=== PATIENT | female | born 1930 | race Caucasian/White ===

== ENCOUNTER 2018-09-19 06:14 | Inpatient (IN) | payer OTHER, MEDICARE ==
[2018-09-19] MEDS ORDERED: ACETAMINOPHEN 325 MG TAB PO (08:00)
[2018-09-19] MEDS ORDERED: BISACODYL (EC) 5 MG TAB PO (08:00)
[2018-09-19] MEDS: SOD CHLORIDE 0.45% 1,000 ML IV (08:22)
[2018-09-19] MEDS: CEFTRIAXONE 1 GM/NS 50 ML IVPB (08:30)
[2018-09-19 08:58] LABS: ADD MAN DIFF? NO
[2018-09-19] MEDS: AMLODIPINE 10 MG TAB PO (08:59)
[2018-09-19] MEDS ORDERED: CEFTRIAXONE 1 GM INJ IVPB (09:00)
[2018-09-19] MEDS: PANTOPRAZOLE (EC) 40 MG TAB PO (09:00)
[2018-09-19] MEDS: LOSARTAN 50 MG TAB PO ×3 (09:00→20:32)
[2018-09-19 09:14] LABS: WHITE BLOOD COUNT 11.5 10^3/ul (4.8-10.8)
[2018-09-19 09:14] LABS: BASOPHILS % 0.2 % (0.0-2.0); EOSINOPHILS % 0.1 % (0.0-7.0); HEMATOCRIT 25.1 % (37.0-47.0); HEMOGLOBIN 7.8 g/dl (12.0-16.0); LYMPHOCYTES # 0.8 10^3/ul (0.8-2.9); LYMPHOCYTES % 6.9 % (15.0-51.0); MEAN CORPUSCULAR HEMOGLOBIN 24.5 pg (29.0-33.0); MEAN CORPUSCULAR HGB CONC 31.1 g/dl (32.0-37.0); MEAN CORPUSCULAR VOLUME 78.7 fl (82.0-101.0); MEAN PLATELET VOLUME 9.1 fl (7.4-10.4); MONOCYTE # 0.7 10^3/ul (0.3-0.9); MONOCYTES % 6.1 % (0.0-11.0); NEUTROPHILS % 86.2 % (39.0-77.0); PLATELET COUNT 523 10^3/UL (140-415); RED BLOOD COUNT 3.19 10^6/ul (4.20-5.40); RED CELL DISTRIBUTION WIDTH 15.2 % (11.5-14.5)
[2018-09-19 09:22] LABS: ALANINE AMINOTRANSFERASE 18 IU/L (13-69); ALBUMIN 2.9 g/dl (3.3-4.9); ALBUMIN/GLOBULIN RATIO 0.74; ALKALINE PHOSPHATASE 89 IU/L (42-121); ANION GAP 9 (5-13); ASPARTATE AMINO TRANSFERASE 22 IU/L (15-46); BILIRUBIN,INDIRECT 0.2 mg/dl (0-1.1); BILIRUBIN,TOTAL 0.2 mg/dl (0.2-1.3); BLOOD UREA NITROGEN 14 mg/dl (7-20); CALCIUM 8.7 mg/dl (8.4-10.2); CARBON DIOXIDE 25 mmol/L (21-31); CHLORIDE 103 mmol/L (97-110); CREATININE 0.54 mg/dl (0.44-1.00); GLUCOSE 157 mg/dl (70-220); SODIUM 137 mmol/L (135-144); TOTAL PROTEIN 6.8 g/dl (6.1-8.1)
[2018-09-19 09:25] LABS: HEMOGLOBIN A1C 6.9 % (0-5.9)
[2018-09-19 09:30] LABS: POTASSIUM 2.9 mmol/L (3.5-5.1)
[2018-09-19] MEDS: POTASSIUM CHLORIDE 100 ML IVPB ×2 (10:53→16:47)
[2018-09-19] MEDS: 1/2 NS + KCL 20 MEQ 1,000 ML IV (18:24)
[2018-09-19 19:03] LABS: TROPONIN-I 0.329 ng/ml (0.000-0.120)
[2018-09-19] MEDS: METOPROLOL 25 MG TAB PO ×2 (20:28→20:32)
[2018-09-20] MEDS: PANTOPRAZOLE (EC) 40 MG TAB PO (05:36)
[2018-09-20 05:58] LABS: ADD MAN DIFF? NO
[2018-09-20 06:03] LABS: WHITE BLOOD COUNT 11.5 10^3/ul (4.8-10.8)
[2018-09-20 06:03] LABS: BASOPHILS % 0.2 % (0.0-2.0); EOSINOPHILS % 0.2 % (0.0-7.0); HEMATOCRIT 25.5 % (37.0-47.0); HEMOGLOBIN 7.9 g/dl (12.0-16.0); LYMPHOCYTES # 1.3 10^3/ul (0.8-2.9); MEAN CORPUSCULAR HEMOGLOBIN 24.5 pg (29.0-33.0); MEAN CORPUSCULAR VOLUME 78.9 fl (82.0-101.0); MEAN PLATELET VOLUME 9.2 fl (7.4-10.4); MONOCYTE # 0.8 10^3/ul (0.3-0.9); MONOCYTES % 7.1 % (0.0-11.0); NEUTROPHIL # 9.3 10^3/ul (1.6-7.5); NEUTROPHILS % 81.1 % (39.0-77.0); PLATELET COUNT 534 10^3/UL (140-415); RED BLOOD COUNT 3.23 10^6/ul (4.20-5.40); RED CELL DISTRIBUTION WIDTH 15.3 % (11.5-14.5)
[2018-09-20 06:24] LABS: LACTIC ACID 1.1 mmol/L (0.5-2.0)
[2018-09-20 06:28] LABS: IRON 22 ug/dl (35-150)
[2018-09-20 06:37] LABS: % IRON SATURATION 9 % SAT (22-52); TOTAL IRON BINDING CAPACITY 244 ug/dl (241-421)
[2018-09-20 06:55] LABS: ANION GAP 10 (5-13); BLOOD UREA NITROGEN 11 mg/dl (7-20); CARBON DIOXIDE 25 mmol/L (21-31); CHLORIDE 103 mmol/L (97-110); CHOL/HDL RATIO 5.1 RATIO; CREATININE 0.54 mg/dl (0.44-1.00); GLUCOSE 132 mg/dl (70-220); HDL CHOLESTEROL 26 mg/dl (33-92); LDL CHOLESTEROL,CALCULATED 88 mg/dl; SODIUM 138 mmol/L (135-144); TRIGLYCERIDES 105 mg/dl (0-149)
[2018-09-20 06:55] LABS: CHOLESTEROL 135 mg/dl (100-200)
[2018-09-20 07:00] LABS: TROPONIN-I 0.343 ng/ml (0.000-0.120)
[2018-09-20] MEDS: LOSARTAN 50 MG TAB PO ×2 (08:41→20:11)
[2018-09-20] MEDS: METOPROLOL 25 MG TAB PO (08:41)
[2018-09-20] MEDS: CEFTRIAXONE 1 GM/NS 50 ML IVPB (08:42)
[2018-09-20] MEDS: AMLODIPINE 10 MG TAB PO (08:42)
[2018-09-20] MEDS: ASPIRIN 81 MG TAB PO (08:42)
[2018-09-20] MEDS: 1/2 NS + KCL 20 MEQ 1,000 ML IV (11:30)
[2018-09-20] MEDS: LEVOTHYROXINE 75 MCG TAB PO (12:16)
[2018-09-20] MEDS ORDERED: GLUCOSE GEL 15 GRAM TUBE BUCCAL (12:30)
[2018-09-20] MEDS ORDERED: GLUCAGON 1 MG INJ IM (12:30)
[2018-09-20] MEDS ORDERED: DEXTROSE 50% 50 ML SYRINGE IV ×2 (12:30)
[2018-09-20] MEDS ORDERED: GLUCOSE GEL 15 GRAM TUBE PO ×2 (12:30)
[2018-09-20] MEDS ORDERED: METOPROLOL 5 MG INJ IV (15:30)
[2018-09-20] MEDS: SOD FERRIC GLUC COMPLX 125 MG in SOD CHLORIDE 0.9% 100 ML IVPB (16:43)
[2018-09-20] MEDS: DIGOXIN 500 MCG INJ IV (16:46)
[2018-09-20] MEDS: INSULIN ASPART [NOVOLOG] 3 ML PEN SC ×2 (17:01→21:53)
[2018-09-20] MEDS: METOPROLOL 50 MG TAB PO (20:11)
[2018-09-20] MEDS: CEFEPIME 1GM/50 ML (PMX) 50 ML IVPB (20:12)
[2018-09-21 05:31] LABS: ADD MAN DIFF? NO
[2018-09-21 05:34] LABS: WHITE BLOOD COUNT 10.5 10^3/ul (4.8-10.8)
[2018-09-21 05:34] LABS: BASOPHILS % 0.3 % (0.0-2.0); EOSINOPHILS # 0.1 10^3/ul (0.0-0.5); EOSINOPHILS % 0.6 % (0.0-7.0); HEMOGLOBIN 8.1 g/dl (12.0-16.0); LYMPHOCYTES # 1.3 10^3/ul (0.8-2.9); LYMPHOCYTES % 12.4 % (15.0-51.0); MEAN CORPUSCULAR HEMOGLOBIN 24.5 pg (29.0-33.0); MEAN CORPUSCULAR HGB CONC 31.2 g/dl (32.0-37.0); MEAN CORPUSCULAR VOLUME 78.5 fl (82.0-101.0); MEAN PLATELET VOLUME 9.4 fl (7.4-10.4); MONOCYTE # 0.8 10^3/ul (0.3-0.9); MONOCYTES % 7.9 % (0.0-11.0); NEUTROPHIL # 8.2 10^3/ul (1.6-7.5); PLATELET COUNT 575 10^3/UL (140-415); RED BLOOD COUNT 3.31 10^6/ul (4.20-5.40); RED CELL DISTRIBUTION WIDTH 15.5 % (11.5-14.5)
[2018-09-21] MEDS: LEVOTHYROXINE 75 MCG TAB PO (06:00)
[2018-09-21] MEDS: PANTOPRAZOLE (EC) 40 MG TAB PO (06:00)
[2018-09-21 06:19] LABS: ANION GAP 9 (5-13); BLOOD UREA NITROGEN 13 mg/dl (7-20); CALCIUM 9.1 mg/dl (8.4-10.2); CARBON DIOXIDE 22 mmol/L (21-31); CHLORIDE 104 mmol/L (97-110); CREATININE 0.68 mg/dl (0.44-1.00); GLUCOSE 128 mg/dl (70-220); POTASSIUM 3.8 mmol/L (3.5-5.1); SODIUM 135 mmol/L (135-144)
[2018-09-21 06:29] LABS: TROPONIN-I 0.236 ng/ml (0.000-0.120)
[2018-09-21] MEDS: INSULIN ASPART [NOVOLOG] 3 ML PEN SC ×4 (07:48→20:31)
[2018-09-21] MEDS: ASPIRIN 81 MG TAB PO (08:29)
[2018-09-21] MEDS: LOSARTAN 50 MG TAB PO ×2 (08:30→20:17)
[2018-09-21] MEDS: METOPROLOL 50 MG TAB PO ×2 (08:30→20:17)
[2018-09-21] MEDS: AMLODIPINE 10 MG TAB PO (08:30)
[2018-09-21] MEDS: 1/2 NS + KCL 20 MEQ 1,000 ML IV (08:31)
[2018-09-21] MEDS: CEFEPIME 1GM/50 ML (PMX) 50 ML IVPB ×2 (08:31→20:17)
[2018-09-21] MEDS: SOD FERRIC GLUC COMPLX 125 MG in SOD CHLORIDE 0.9% 100 ML IVPB (13:12)
[2018-09-21] MEDS ORDERED: VANCOMYCIN IV PER PHARMACY XX (16:00)
[2018-09-21] MEDS: VANCOMYCIN 750 MG (PMX) 250 ML IVPB (17:25)
[2018-09-21] MEDS: MUPIROCIN 2% 22 GM OINT TOP (20:20)
[2018-09-22] MEDS: 1/2 NS + KCL 20 MEQ 1,000 ML IV ×2 (03:30→12:24)
[2018-09-22] MEDS: PANTOPRAZOLE (EC) 40 MG TAB PO (05:28)
[2018-09-22] MEDS: LEVOTHYROXINE 75 MCG TAB PO (05:28)
[2018-09-22 05:52] LABS: ADD MAN DIFF? NO
[2018-09-22 05:59] LABS: WHITE BLOOD COUNT 9.5 10^3/ul (4.8-10.8)
[2018-09-22 05:59] LABS: BASOPHILS % 0.3 % (0.0-2.0); EOSINOPHILS # 0.1 10^3/ul (0.0-0.5); EOSINOPHILS % 0.8 % (0.0-7.0); HEMATOCRIT 27.1 % (37.0-47.0); HEMOGLOBIN 8.3 g/dl (12.0-16.0); LYMPHOCYTES # 1.4 10^3/ul (0.8-2.9); LYMPHOCYTES % 14.2 % (15.0-51.0); MEAN CORPUSCULAR HEMOGLOBIN 24.3 pg (29.0-33.0); MEAN CORPUSCULAR HGB CONC 30.6 g/dl (32.0-37.0); MEAN CORPUSCULAR VOLUME 79.5 fl (82.0-101.0); MEAN PLATELET VOLUME 9.5 fl (7.4-10.4); MONOCYTE # 0.8 10^3/ul (0.3-0.9); MONOCYTES % 8.1 % (0.0-11.0); NEUTROPHIL # 7.2 10^3/ul (1.6-7.5); NEUTROPHILS % 75.4 % (39.0-77.0); PLATELET COUNT 572 10^3/UL (140-415); RED BLOOD COUNT 3.41 10^6/ul (4.20-5.40); RED CELL DISTRIBUTION WIDTH 15.8 % (11.5-14.5)
[2018-09-22 06:32] LABS: MAGNESIUM 1.5 mg/dl (1.7-2.5)
[2018-09-22 06:32] LABS: PHOSPHORUS 3.9 mg/dl (2.5-4.9)
[2018-09-22 06:34] LABS: ANION GAP 9 (5-13); BLOOD UREA NITROGEN 13 mg/dl (7-20); CALCIUM 9.1 mg/dl (8.4-10.2); CARBON DIOXIDE 21 mmol/L (21-31); CHLORIDE 106 mmol/L (97-110); CREATININE 0.66 mg/dl (0.44-1.00); GLUCOSE 108 mg/dl (70-220); POTASSIUM 3.8 mmol/L (3.5-5.1); SODIUM 136 mmol/L (135-144)
[2018-09-22 06:45] LABS: TROPONIN-I 0.172 ng/ml (0.000-0.120)
[2018-09-22] MEDS: INSULIN ASPART [NOVOLOG] 3 ML PEN SC ×4 (08:00→21:09)
[2018-09-22] MEDS: CEFEPIME 1GM/50 ML (PMX) 50 ML IVPB ×2 (08:26→20:49)
[2018-09-22] MEDS: ASPIRIN 81 MG TAB PO (08:27)
[2018-09-22] MEDS: METOPROLOL 50 MG TAB PO ×2 (08:27→20:49)
[2018-09-22] MEDS: AMLODIPINE 10 MG TAB PO (08:28)
[2018-09-22] MEDS: LOSARTAN 50 MG TAB PO ×2 (08:28→20:47)
[2018-09-22] MEDS: MUPIROCIN 2% 22 GM OINT TOP ×2 (08:28→20:55)
[2018-09-22] MEDS: SOD FERRIC GLUC COMPLX 125 MG in SOD CHLORIDE 0.9% 100 ML IVPB (12:23)
[2018-09-22] MEDS: VANCOMYCIN 500 MG (PMX) 100 ML IVPB (16:22)
[2018-09-22] MEDS: MAGNESIUM SULFATE 3 GM in DEXTROSE 5% 100 ML IVPB (17:28)
[2018-09-23] MEDS: PANTOPRAZOLE (EC) 40 MG TAB PO (05:21)
[2018-09-23] MEDS: LEVOTHYROXINE 75 MCG TAB PO (05:21)
[2018-09-23 05:48] LABS: ADD MAN DIFF? NO
[2018-09-23 05:56] LABS: WHITE BLOOD COUNT 10.8 10^3/ul (4.8-10.8)
[2018-09-23 05:56] LABS: BASOPHIL # 0.1 10^3/ul (0.0-0.1); BASOPHILS % 0.5 % (0.0-2.0); EOSINOPHILS # 0.1 10^3/ul (0.0-0.5); EOSINOPHILS % 1.2 % (0.0-7.0); HEMATOCRIT 26.4 % (37.0-47.0); HEMOGLOBIN 8.1 g/dl (12.0-16.0); LYMPHOCYTES # 1.4 10^3/ul (0.8-2.9); LYMPHOCYTES % 12.7 % (15.0-51.0); MEAN CORPUSCULAR HEMOGLOBIN 24.7 pg (29.0-33.0); MEAN CORPUSCULAR HGB CONC 30.7 g/dl (32.0-37.0); MEAN CORPUSCULAR VOLUME 80.5 fl (82.0-101.0); MEAN PLATELET VOLUME 9.7 fl (7.4-10.4); MONOCYTE # 0.9 10^3/ul (0.3-0.9); MONOCYTES % 8.1 % (0.0-11.0); NEUTROPHIL # 8.2 10^3/ul (1.6-7.5); NEUTROPHILS % 75.9 % (39.0-77.0); PLATELET COUNT 578 10^3/UL (140-415); RED BLOOD COUNT 3.28 10^6/ul (4.20-5.40); RED CELL DISTRIBUTION WIDTH 15.9 % (11.5-14.5)
[2018-09-23 06:08] LABS: MAGNESIUM 2.3 mg/dl (1.7-2.5)
[2018-09-23 06:08] LABS: PHOSPHORUS 3.7 mg/dl (2.5-4.9)
[2018-09-23 06:11] LABS: ANION GAP 8 (5-13); BLOOD UREA NITROGEN 14 mg/dl (7-20); CARBON DIOXIDE 22 mmol/L (21-31); CHLORIDE 105 mmol/L (97-110); CREATININE 0.69 mg/dl (0.44-1.00); GLUCOSE 123 mg/dl (70-220); POTASSIUM 3.7 mmol/L (3.5-5.1); SODIUM 135 mmol/L (135-144)
[2018-09-23] MEDS: INSULIN ASPART [NOVOLOG] 3 ML PEN SC ×4 (07:49→21:08)
[2018-09-23] MEDS: CEFEPIME 1GM/50 ML (PMX) 50 ML IVPB (08:21)
[2018-09-23] MEDS: ASPIRIN 81 MG TAB PO (08:21)
[2018-09-23] MEDS: METOPROLOL 50 MG TAB PO ×2 (08:22→21:04)
[2018-09-23] MEDS: LOSARTAN 50 MG TAB PO ×2 (08:23→21:05)
[2018-09-23] MEDS: AMLODIPINE 10 MG TAB PO (08:23)
[2018-09-23] MEDS: MUPIROCIN 2% 22 GM OINT TOP ×2 (08:24→21:09)
[2018-09-23] MEDS: SOD FERRIC GLUC COMPLX 125 MG in SOD CHLORIDE 0.9% 100 ML IVPB (12:40)
[2018-09-23] MEDS: VANCOMYCIN 500 MG (PMX) 100 ML IVPB (17:17)
[2018-09-24] MEDS: LEVOTHYROXINE 75 MCG TAB PO (06:58)
[2018-09-24] MEDS: PANTOPRAZOLE (EC) 40 MG TAB PO (06:58)
[2018-09-24] MEDS: INSULIN ASPART [NOVOLOG] 3 ML PEN SC ×3 (07:55→17:36)
[2018-09-24] MEDS: ASPIRIN 81 MG TAB PO (08:52)
[2018-09-24] MEDS: LOSARTAN 50 MG TAB PO (08:53)
[2018-09-24] MEDS: METOPROLOL 50 MG TAB PO ×2 (08:53→21:00)
[2018-09-24] MEDS: AMLODIPINE 10 MG TAB PO (08:53)
[2018-09-24] MEDS: MUPIROCIN 2% 22 GM OINT TOP ×2 (08:54→21:00)
[2018-09-24] MEDS: SOD FERRIC GLUC COMPLX 125 MG in SOD CHLORIDE 0.9% 100 ML IVPB (12:33)
[2018-09-24] MEDS ORDERED: CEFTRIAXONE 2 GM/50 ML (PMX) 50 ML IVPB (16:30)
[2018-09-24] MEDS: CEFTRIAXONE 1 GM/NS 50 ML IVPB (16:54)
[2018-09-25] MEDS: ATORVASTATIN 10 MG TAB PO ×2 (00:31→21:15)
[2018-09-25] MEDS: LOSARTAN 50 MG TAB PO ×3 (00:32→21:16)
[2018-09-25] MEDS: INSULIN ASPART [NOVOLOG] 3 ML PEN SC ×5 (00:34→21:24)
[2018-09-25 05:09] LABS: ADD MAN DIFF? NO
[2018-09-25 05:17] LABS: BASOPHILS % 0.3 % (0.0-2.0); EOSINOPHILS # 0.1 10^3/ul (0.0-0.5); EOSINOPHILS % 1.1 % (0.0-7.0); HEMOGLOBIN 8.6 g/dl (12.0-16.0); LYMPHOCYTES # 1.5 10^3/ul (0.8-2.9); LYMPHOCYTES % 12.7 % (15.0-51.0); MEAN CORPUSCULAR HEMOGLOBIN 25.1 pg (29.0-33.0); MEAN CORPUSCULAR HGB CONC 30.7 g/dl (32.0-37.0); MEAN CORPUSCULAR VOLUME 81.9 fl (82.0-101.0); MEAN PLATELET VOLUME 9.5 fl (7.4-10.4); MONOCYTE # 0.9 10^3/ul (0.3-0.9); MONOCYTES % 7.8 % (0.0-11.0); NEUTROPHIL # 8.9 10^3/ul (1.6-7.5); NEUTROPHILS % 76.7 % (39.0-77.0); PLATELET COUNT 528 10^3/UL (140-415); RED BLOOD COUNT 3.42 10^6/ul (4.20-5.40); RED CELL DISTRIBUTION WIDTH 17.9 % (11.5-14.5)
[2018-09-25 05:17] LABS: WHITE BLOOD COUNT 11.6 10^3/ul (4.8-10.8)
[2018-09-25 05:41] LABS: PHOSPHORUS 3.4 mg/dl (2.5-4.9)
[2018-09-25 05:41] LABS: ANION GAP 8 (5-13); BLOOD UREA NITROGEN 15 mg/dl (7-20); CALCIUM 9.2 mg/dl (8.4-10.2); CARBON DIOXIDE 24 mmol/L (21-31); CHLORIDE 107 mmol/L (97-110); CREATININE 0.63 mg/dl (0.44-1.00); GLUCOSE 117 mg/dl (70-220); MAGNESIUM 1.9 mg/dl (1.7-2.5); POTASSIUM 3.9 mmol/L (3.5-5.1); SODIUM 139 mmol/L (135-144)
[2018-09-25] MEDS: LEVOTHYROXINE 75 MCG TAB PO (06:29)
[2018-09-25] MEDS: PANTOPRAZOLE (EC) 40 MG TAB PO (06:29)
[2018-09-25] MEDS: AMLODIPINE 10 MG TAB PO (08:40)
[2018-09-25] MEDS: ASPIRIN 81 MG TAB PO (08:40)
[2018-09-25] MEDS: METOPROLOL 50 MG TAB PO ×2 (08:40→21:15)
[2018-09-25] MEDS: MUPIROCIN 2% 22 GM OINT TOP ×2 (08:50→21:17)
[2018-09-25] MEDS: CEFTRIAXONE 1 GM/NS 50 ML IVPB (15:21)
[2018-09-26] MEDS: PANTOPRAZOLE (EC) 40 MG TAB PO (05:40)
[2018-09-26] MEDS: LEVOTHYROXINE 75 MCG TAB PO (05:41)
[2018-09-26] MEDS: INSULIN ASPART [NOVOLOG] 3 ML PEN SC ×4 (08:50→21:00)
[2018-09-26] MEDS: AMLODIPINE 10 MG TAB PO (09:44)
[2018-09-26] MEDS: MUPIROCIN 2% 22 GM OINT TOP ×2 (09:44→21:18)
[2018-09-26] MEDS: METOPROLOL 50 MG TAB PO ×2 (09:44→21:17)
[2018-09-26] MEDS: LOSARTAN 50 MG TAB PO ×2 (09:44→21:17)
[2018-09-26] MEDS: ASPIRIN 81 MG TAB PO (09:44)
[2018-09-26] MEDS: CEFTRIAXONE 1 GM/NS 50 ML IVPB (17:55)
[2018-09-26] MEDS: ATORVASTATIN 10 MG TAB PO (21:16)
[2018-09-27] MEDS: PANTOPRAZOLE (EC) 40 MG TAB PO (05:43)
[2018-09-27] MEDS: LEVOTHYROXINE 75 MCG TAB PO (05:43)
[2018-09-27 05:56] LABS: ADD MAN DIFF? NO
[2018-09-27 06:03] LABS: BASOPHIL # 0.1 10^3/ul (0.0-0.1); BASOPHILS % 0.6 % (0.0-2.0); EOSINOPHILS # 0.2 10^3/ul (0.0-0.5); EOSINOPHILS % 1.8 % (0.0-7.0); HEMATOCRIT 27.3 % (37.0-47.0); HEMOGLOBIN 8.4 g/dl (12.0-16.0); LYMPHOCYTES # 1.8 10^3/ul (0.8-2.9); LYMPHOCYTES % 15.2 % (15.0-51.0); MEAN CORPUSCULAR HEMOGLOBIN 25.4 pg (29.0-33.0); MEAN CORPUSCULAR HGB CONC 30.8 g/dl (32.0-37.0); MEAN CORPUSCULAR VOLUME 82.5 fl (82.0-101.0); MEAN PLATELET VOLUME 10.1 fl (7.4-10.4); MONOCYTE # 0.8 10^3/ul (0.3-0.9); MONOCYTES % 6.8 % (0.0-11.0); NEUTROPHIL # 8.8 10^3/ul (1.6-7.5); NEUTROPHILS % 73.7 % (39.0-77.0); PLATELET COUNT 583 10^3/UL (140-415); RED BLOOD COUNT 3.31 10^6/ul (4.20-5.40); RED CELL DISTRIBUTION WIDTH 18.9 % (11.5-14.5)
[2018-09-27 06:36] LABS: ANION GAP 9 (5-13); BLOOD UREA NITROGEN 14 mg/dl (7-20); CALCIUM 9.4 mg/dl (8.4-10.2); CARBON DIOXIDE 26 mmol/L (21-31); CHLORIDE 102 mmol/L (97-110); GLUCOSE 118 mg/dl (70-220); SODIUM 137 mmol/L (135-144)
[2018-09-27 06:39] LABS: POTASSIUM 3.8 mmol/L (3.5-5.1)
[2018-09-27] MEDS: INSULIN ASPART [NOVOLOG] 3 ML PEN SC ×4 (08:00→21:48)
[2018-09-27] MEDS: LOSARTAN 50 MG TAB PO ×2 (09:32→21:37)
[2018-09-27] MEDS: METOPROLOL 50 MG TAB PO ×2 (09:32→21:36)
[2018-09-27] MEDS: ASPIRIN 81 MG TAB PO (09:32)
[2018-09-27] MEDS: AMLODIPINE 10 MG TAB PO (09:32)
[2018-09-27] MEDS: MUPIROCIN 2% 22 GM OINT TOP ×2 (09:33→21:38)
[2018-09-27] MEDS: LOSARTAN 25 MG TAB PO ×2 (11:30→21:00)
[2018-09-27] MEDS: CEFTRIAXONE 1 GM/NS 50 ML IVPB (16:21)
[2018-09-27] MEDS: ATORVASTATIN 10 MG TAB PO (21:36)
[2018-09-27] MEDS: DOXYCYCLINE 100 MG TAB PO (21:36)
[2018-09-28] MEDS: PANTOPRAZOLE (EC) 40 MG TAB PO (05:39)
[2018-09-28] MEDS: LEVOTHYROXINE 75 MCG TAB PO (05:39)
[2018-09-28 06:11] LABS: ADD MAN DIFF? NO
[2018-09-28 06:26] LABS: WHITE BLOOD COUNT 12.8 10^3/ul (4.8-10.8)
[2018-09-28 06:26] LABS: BASOPHIL # 0.1 10^3/ul (0.0-0.1); BASOPHILS % 0.4 % (0.0-2.0); EOSINOPHILS # 0.1 10^3/ul (0.0-0.5); EOSINOPHILS % 0.9 % (0.0-7.0); HEMATOCRIT 32.6 % (37.0-47.0); HEMOGLOBIN 10.2 g/dl (12.0-16.0); LYMPHOCYTES # 2.1 10^3/ul (0.8-2.9); LYMPHOCYTES % 16.1 % (15.0-51.0); MEAN CORPUSCULAR HEMOGLOBIN 25.6 pg (29.0-33.0); MEAN CORPUSCULAR HGB CONC 31.3 g/dl (32.0-37.0); MEAN CORPUSCULAR VOLUME 81.9 fl (82.0-101.0); MEAN PLATELET VOLUME 11.2 fl (7.4-10.4); MONOCYTE # 0.8 10^3/ul (0.3-0.9); MONOCYTES % 6.1 % (0.0-11.0); NEUTROPHIL # 9.6 10^3/ul (1.6-7.5); NEUTROPHILS % 74.9 % (39.0-77.0); PLATELET COUNT 460 10^3/UL (140-415); RED BLOOD COUNT 3.98 10^6/ul (4.20-5.40)
[2018-09-28 06:38] LABS: ANION GAP 10 (5-13); BLOOD UREA NITROGEN 20 mg/dl (7-20); CALCIUM 9.4 mg/dl (8.4-10.2); CARBON DIOXIDE 24 mmol/L (21-31); CHLORIDE 100 mmol/L (97-110); CREATININE 0.78 mg/dl (0.44-1.00); GLUCOSE 140 mg/dl (70-220); POTASSIUM 4.3 mmol/L (3.5-5.1); SODIUM 134 mmol/L (135-144)
[2018-09-28] MEDS: INSULIN ASPART [NOVOLOG] 3 ML PEN SC ×4 (08:22→21:32)
[2018-09-28] MEDS: DOXYCYCLINE 100 MG TAB PO ×2 (09:00→21:29)
[2018-09-28] MEDS: METOPROLOL 50 MG TAB PO ×2 (09:01→21:30)
[2018-09-28] MEDS: AMLODIPINE 10 MG TAB PO (09:01)
[2018-09-28] MEDS: ASPIRIN 81 MG TAB PO (09:02)
[2018-09-28] MEDS: LOSARTAN 25 MG TAB PO (09:02)
[2018-09-28] MEDS: MUPIROCIN 2% 22 GM OINT TOP ×2 (09:03→21:33)
[2018-09-28] MEDS: LOSARTAN 50 MG TAB PO ×2 (09:03→21:29)
[2018-09-28] MEDS ORDERED: LIDOCAINE 1% (MPF) 5 ML VIAL SC (13:30)
[2018-09-28 15:56] LABS: ADD UMIC YES; UR ASCORBIC ACID NEGATIVE (NEGATIVE); UR BACTERIA FEW /HPF (NONE SEEN); UR BILIRUBIN (Dip) NEGATIVE (NEGATIVE); UR BLOOD (Dip) 1+ mg/dL (NEGATIVE); UR CLARITY CLOUDY (CLEAR); UR COLOR YELLOW (YELLOW); UR GLUCOSE (Dip) NEGATIVE (NEGATIVE); UR KETONES (Dip) NEGATIVE (NEGATIVE); UR LEUKOCYTE ESTERASE (Dip) NEGATIVE Leu/ul (NEGATIVE); UR NITRITE (Dip) NEGATIVE (NEGATIVE); UR RBC 23 /HPF (0-5); UR SPECIFIC GRAVITY (Dip) 1.012 (1.003-1.030); UR SQUAMOUS EPITHELIAL CELL MODERATE /HPF (FEW); UR TOTAL PROTEIN (Dip) NEGATIVE (NEGATIVE); UR UROBILINOGEN (Dip) NEGATIVE (NEGATIVE); UR WBC 2 /HPF (0-5)
[2018-09-28] MEDS: CEFTRIAXONE 1 GM/NS 50 ML IVPB (18:23)
[2018-09-28] MEDS: ATORVASTATIN 10 MG TAB PO (21:29)
[2018-09-29 05:30] LABS: ADD MAN DIFF? NO
[2018-09-29 05:40] LABS: WHITE BLOOD COUNT 10.8 10^3/ul (4.8-10.8)
[2018-09-29 05:40] LABS: BASOPHIL # 0.1 10^3/ul (0.0-0.1); BASOPHILS % 0.6 % (0.0-2.0); EOSINOPHILS # 0.1 10^3/ul (0.0-0.5); EOSINOPHILS % 0.8 % (0.0-7.0); HEMATOCRIT 29.6 % (37.0-47.0); HEMOGLOBIN 9.3 g/dl (12.0-16.0); LYMPHOCYTES % 18.1 % (15.0-51.0); MEAN CORPUSCULAR HEMOGLOBIN 25.8 pg (29.0-33.0); MEAN CORPUSCULAR HGB CONC 31.4 g/dl (32.0-37.0); MEAN CORPUSCULAR VOLUME 82.2 fl (82.0-101.0); MEAN PLATELET VOLUME 10.1 fl (7.4-10.4); MONOCYTE # 0.6 10^3/ul (0.3-0.9); MONOCYTES % 5.4 % (0.0-11.0); NEUTROPHILS % 74.1 % (39.0-77.0); PLATELET COUNT 466 10^3/UL (140-415); RED CELL DISTRIBUTION WIDTH 20.1 % (11.5-14.5)
[2018-09-29] MEDS: PANTOPRAZOLE (EC) 40 MG TAB PO (06:09)
[2018-09-29] MEDS: LEVOTHYROXINE 75 MCG TAB PO (06:09)
[2018-09-29] MEDS: INSULIN ASPART [NOVOLOG] 3 ML PEN SC ×2 (07:51→11:40)
[2018-09-29] MEDS: DOXYCYCLINE 100 MG TAB PO (08:24)
[2018-09-29] MEDS: ASPIRIN 81 MG TAB PO (08:24)
[2018-09-29] MEDS: METOPROLOL 50 MG TAB PO (08:25)
[2018-09-29] MEDS: AMLODIPINE 10 MG TAB PO (08:25)
[2018-09-29] MEDS: LOSARTAN 50 MG TAB PO (08:25)
[2018-09-29] MEDS: MUPIROCIN 2% 22 GM OINT TOP (08:26)
[2018-09-29] MEDS: MEGESTROL (40 MG/ML) 10ML CUP PO (14:17)
== END 2018-09-29 14:45 | DRG 871 ==
LOC: 2NE 06:14 → 6WM 21:32
PROC: 02HV33Z Insertion of Infusion Device into Superior Vena Cava, Percutaneous Approach (ICD-10-PCS; principal; 2018-09-28)
DX: A41.9 Sepsis, unspecified organism (principal); I21.A1 Myocardial infarction type 2; E43 Unspecified severe protein-calorie malnutrition; G93.41 Metabolic encephalopathy; I63.442 Cerebral infarction due to embolism of left cerebellar artery; Z68.1 Body mass index [BMI] 19.9 or less, adult; R64 Cachexia; N39.0 Urinary tract infection, site not specified; F03.90 Unspecified dementia, unspecified severity, without behavioral disturbance, psychotic disturbance, mood disturbance, and anxiety; I10 Essential (primary) hypertension; D50.9 Iron deficiency anemia, unspecified; E11.9 Type 2 diabetes mellitus without complications; E03.9 Hypothyroidism, unspecified; Z66 Do not resuscitate; E83.42 Hypomagnesemia; Z22.322 Carrier or suspected carrier of Methicillin resistant Staphylococcus aureus; E87.6 Hypokalemia; R62.7 Adult failure to thrive; Z87.11 Personal history of peptic ulcer disease; I08.0 Rheumatic disorders of both mitral and aortic valves; Z91.81 History of falling; Z96.641 Presence of right artificial hip joint
CPT/HCPCS: 36569; 70450; 70544; 70548; 70551; 71045; 72170; 76937; 80048; 80053; 80061; 81001; 82962; 83036; 83540; 83605; 83735; 84100; 84443; 84484; 85025; 87040-91; 87081; 87086; 93005; 93306; 97110; 97162; 97530

== ENCOUNTER 2018-10-17 13:19 | Emergency (ER) | payer OTHER ==
[2018-10-17 13:44] LABS: ADD MAN DIFF? NO
[2018-10-17 13:46] LABS: WHITE BLOOD COUNT 9.4 10^3/ul (4.8-10.8)
[2018-10-17 13:46] LABS: ABNORMAL IP MESSAGE 1; BASOPHIL # 0.1 10^3/ul (0.0-0.1); BASOPHILS % 0.5 % (0.0-2.0); EOSINOPHILS # 0.2 10^3/ul (0.0-0.5); HEMATOCRIT 28.6 % (37.0-47.0); HEMOGLOBIN 8.7 g/dl (12.0-16.0); LYMPHOCYTES # 1.3 10^3/ul (0.8-2.9); LYMPHOCYTES % 13.3 % (15.0-51.0); MEAN CORPUSCULAR HEMOGLOBIN 26.4 pg (29.0-33.0); MEAN CORPUSCULAR HGB CONC 30.4 g/dl (32.0-37.0); MEAN CORPUSCULAR VOLUME 86.9 fl (82.0-101.0); MEAN PLATELET VOLUME 9.4 fl (7.4-10.4); MONOCYTE # 0.8 10^3/ul (0.3-0.9); MONOCYTES % 8.1 % (0.0-11.0); NEUTROPHIL # 7.1 10^3/ul (1.6-7.5); NEUTROPHILS % 75.5 % (39.0-77.0); PLATELET COUNT 511 10^3/UL (140-415); RED BLOOD COUNT 3.29 10^6/ul (4.20-5.40); RED CELL DISTRIBUTION WIDTH 24.3 % (11.5-14.5)
[2018-10-17 13:50] LABS: POSITIVE DIFF @See below
[2018-10-17 13:58] LABS: ALANINE AMINOTRANSFERASE 48 IU/L (13-69); ALBUMIN 3.5 g/dl (3.3-4.9); ALBUMIN/GLOBULIN RATIO 0.81; ALKALINE PHOSPHATASE 127 IU/L (42-121); ANION GAP 8 (5-13); ASPARTATE AMINO TRANSFERASE 25 IU/L (15-46); BILIRUBIN,INDIRECT 0.3 mg/dl (0-1.1); BILIRUBIN,TOTAL 0.3 mg/dl (0.2-1.3); BLOOD UREA NITROGEN 25 mg/dl (7-20); CALCIUM 9.8 mg/dl (8.4-10.2); CARBON DIOXIDE 21 mmol/L (21-31); CHLORIDE 110 mmol/L (97-110); CREATININE 1.08 mg/dl (0.44-1.00); GLUCOSE 108 mg/dl (70-220); POTASSIUM 4.6 mmol/L (3.5-5.1); SODIUM 139 mmol/L (135-144); TOTAL PROTEIN 7.8 g/dl (6.1-8.1)
[2018-10-17] MEDS: SOD CHLORIDE 0.9% 500 ML IV (14:02)
[2018-10-17 14:06] LABS: INR 1.31; PROTIME 16.4 Sec (11.9-14.9); PT RATIO 1.3
[2018-10-17 14:07] LABS: PARTIAL THROMBOPLASTIN TIME 38.7 Sec (23.0-35.0)
[2018-10-17 14:09] LABS: TROPONIN-I < 0.012 ng/ml (0.000-0.120)
[2018-10-17] MEDS: LIDOCAINE 1% (MPF) 5 ML VIAL SC (14:30)
[2018-10-17 15:32] LABS: ADD UMIC NO; UR ASCORBIC ACID NEGATIVE (NEGATIVE); UR BILIRUBIN (Dip) NEGATIVE (NEGATIVE); UR BLOOD (Dip) NEGATIVE (NEGATIVE); UR CLARITY CLEAR (CLEAR); UR COLOR YELLOW (YELLOW); UR GLUCOSE (Dip) NEGATIVE (NEGATIVE); UR KETONES (Dip) NEGATIVE (NEGATIVE); UR LEUKOCYTE ESTERASE (Dip) NEGATIVE Leu/ul (NEGATIVE); UR NITRITE (Dip) NEGATIVE (NEGATIVE); UR SPECIFIC GRAVITY (Dip) 1.009 (1.003-1.030); UR TOTAL PROTEIN (Dip) NEGATIVE (NEGATIVE); UR UROBILINOGEN (Dip) NEGATIVE (NEGATIVE)
== END 2018-10-17 21:20 | disposition home or self-care (01) ==
LOC: E/R 21:20
DX: R53.1 Weakness (principal); R40.2142 Coma scale, eyes open, spontaneous, at arrival to emergency department; R40.2342 Coma scale, best motor response, flexion withdrawal, at arrival to emergency department; R40.2242 Coma scale, best verbal response, confused conversation, at arrival to emergency department
CPT/HCPCS: 36415; 71045; 80053; 81003; 83605; 84484; 85025; 85610; 85730; 87040-91; 87086; 93005; 99285-25